=== PATIENT | female | born 1940 | race Caucasian/White ===

== ENCOUNTER → 2020-01-22 14:36 | Outpatient (CLI) | payer MEDICARE, SELFPAY ==
--- NOTE | ~2020-01-22 | DEXA_ITS ---
Bone Density Report Name: Dianne Perez Age: 79 Sex: Female Ethnicity: White Date of : 1940 Indication: postmenopausal; screening for osteoporosis; height loss; inflammatory bowel disease; hysterectomy; Referring Provider: Alton, Donaldo Melchor Study: Bone densitometry was performed. Exam Date: January 22, 2020 Accession number: [id number] Bone Density: Region BMD T-score Z-score Classification AP Spine (L1, L2, L4) 1.150 1.1 3.6 Normal Femoral Neck (Left) 0.877 0.3 2.4 Normal Total Hip (Left) 1.039 0.8 2.7 Normal World Health Organization criteria for BMD impression classify patients as: Normal (T-score at or above -1.0), Osteopenia (T-score between -1.0 and -2.5), or Osteoporosis (T-score at or below -2.5). 10-year Fracture Risk: FRAX not reported because: All T-scores for Spine Total, Hip Total, Femoral Neck at or above -1.0 Clinical Information Provided by Patient: Has used the following medications: Vitamin D Has the following medical conditions: Inflammatory bowel diseases, Hysterectomy, STAGE 3 KIDNEY DISEASE Patient maximum height was 62.5 Menopause Age: 51 No regular weight bearing exercise Drinks caffeinated beverages Onset of menses at age 13 Number of children 5 Impression: The patient has normal bone mass. Discussion: LOW RISK OF FRACTURE; BONE DENSITY IS WELL ABOVE THE MINIMUM DESIRABLE LEVEL AND ABOVE AVERAGE FOR AGE AND SEX AT ALL SKELETAL SITES TESTED. This person's bone density is above expected limits for age and sex. This is rarely clinically significant, but should be pursued if there are significant musculoskeletal complaints. The patient should follow a healthful lifestyle (good nutrition with adequate calcium and vitamin D, and appropriate weight-bearing exercise). Follow-Up: Consider repeating this study in 5 years or sooner if there is some new clinical indication. Reported by: [facility] on 01/22/2020 3:20:00 PM. Reviewed, dictated and finalized at location ACailin DIEHL
== END ==
PROVIDERS: PCP Nurse Practitioner Family; Visit Provider Internal Medicine Nephrology
DX: I12.9 Hypertensive chronic kidney disease with stage 1 through stage 4 chronic kidney disease, or unspecified chronic kidney disease (principal); N18.3 Chronic kidney disease, stage 3 (moderate); R32 Unspecified urinary incontinence; E11.9 Type 2 diabetes mellitus without complications; E78.5 Hyperlipidemia, unspecified; Z78.0 Asymptomatic menopausal state
CPT/HCPCS: 77080

== ENCOUNTER 2020-04-12 09:41 | Outpatient (CLI) | payer MEDICARE, SELFPAY ==
--- NOTE | ~2020-04-12 | US_ITS ---
EXAMINATION: US thyroid EXAM DATE: 04/12/2020 10:18 INDICATION: Nontoxic goiter. TECHNIQUE: Multiple grayscale and Doppler images of the thyroid were obtained (by a technologist who performed the scan) and subsequently reviewed. Individual nodules and recommendations may be reporte d in accordance with TI-RADS system as designated by the 2017 ACR White Paper TI-RADS committee. The re is no prior study for comparison. FINDINGS: The right thyroid lobe measures 4.4 x 2.2 x 1.6 cm, the left measuring 4.7 x 1.9 x 1.6 cm. Relatively homogeneous echogenicity except for multiple small thyroid nodules, mostly cystic or predominantly c ystic up to 1 cm in size. These are most likely benign. IMPRESSION: Mild thyromegaly. Multiple nodules likely benign but consider 1-2 year follow-up ultrasou nd. Reviewed, dictated and finalized at location A. IMPRESSION: Mild thyromegaly. Multiple nodules likely benign but consider 1-2 y ear follow-up ultrasound.
== END 2020-04-12 09:42 | disposition home or self-care (01) ==
PROVIDERS: PCP Nurse Practitioner Family; Visit Provider Internal Medicine Endocrinology, Diabetes & Metabolism
DX: E04.2 Nontoxic multinodular goiter (principal)
CPT/HCPCS: 76536

== ENCOUNTER → 2020-10-22 15:57 | Outpatient (CLI) | payer MEDICARE, SELFPAY ==
--- NOTE | ~2020-10-22 | XR_ITS ---
EXAMINATION: [id number] INDICATION: Right pleurodynia TECHNIQUE: A frontal view of the chest and 3 views of the right ribs were obtained on five radiograph s. COMPARISON: None. FINDINGS: The lungs are free of acute opacities. There is no pleural effusion or pneumothorax. The he art size is normal. There is a moderate-sized hiatal hernia. No displaced rib fracture is identified. 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 IMPRESSION: 1. No acute cardiopulmonary abnormality or evidence of displaced rib fracture. Reviewed, dictated and finalized at location A. RS INSPECTOR
== END ==
PROVIDERS: Visit Provider Nurse Practitioner Family
DX: R07.81 Pleurodynia (principal); K44.9 Diaphragmatic hernia without obstruction or gangrene; M19.011 Primary osteoarthritis, right shoulder
CPT/HCPCS: 71101

== ENCOUNTER 2022-01-18 09:30 | Outpatient (RCR) | payer MEDICARE, SELFPAY ==
--- NOTE | 2021-12-19 11:42 | PTOPEVAL ---
PHYSICAL THERAPY EVALUATION AND PLAN OF CARE Thank you for referring Dianne Perez to [facility].? The patient is scheduled to be seen for therapy? 1-2x/month. Please review, sign, date and return this plan of care DIVINE. I agree with and certify that the following plan of care is medically necessary. Referring Physician Date Attending Provider: Omar Oliveros, SIFTING OPERATOR Evaluation Diagnosis urinary incontinence Onset >5 years ago Subjective Information States that she has had the Query Text:As Reported By Patient/ incontinence for a long time Family and seems to be slightly worse . She did participate in pelvic floor therapy 5-10 years ago and felt it was productive but does not remember the exercises now. She started to do the ball squeeze (adduction sets) and seems to be helping a little already. Reports that she went to see a urologist and he prescribed two medications - she stopped taking one because it was making the incontinence worse. The other she continues to take but does not feel like it is doing much. She had a hysterectomy at ag 51 and does not feel like this is when her incontinence started. States that she feels like she does have stress and urge incontinence and also feels as though she has a difficult time emptying the bladder. She will stand up from the toilet and still feel like she has to go but nothing is coming out. Wears depends at night and does have incontinence when she is sleeping. Goes through 1-2 pads during the da but does not change her pad everytime she leaks just a little bit. States she can go to the bathroom anywhere from 1-2x/night or even up to 6-8x/ night. Prior Level of Function Medications Ho
--- NOTE | 2022-01-18 11:28 | PTOPEVAL ---
PHYSICAL THERAPY PROGRESS REPORT Thank you for referring Dianne Perez to [facility].? Dianne will follow up in a month for further evaluation and assessment. Please review, sign, date and return this plan of care DIVINE. I agree with and certify that the following plan of care is medically necessary. Referring Physician Date Attending Provider: Omar Oliveros, CW OPERATOR Diagnosis urinary incontinence Onset >5 years ago Subjective Information Dianne is here today 4 weeks Query Text:As Reported By Patient/ after initial visit for Family evaluation urinary incontinence. She reports that after two weeks of therapy she felt like she was making a lot of improvement but from then until now she feels like she plateued. Still feeling like she needs to be drinking more water. urine flow is stronger but still does not feel like there is a lot of fluid that voids when she urinates. Still feeling like she will empty the bladder and then stand and still feel like she has to go. Nocturia about 2-3x/night (vs 6-8x/night). Does not know how many times she goes during the day. States she goes through about 1-2pads/day and thinks she was previously going through 3-4pads/day. Pain Assessment Timing of Pain Assessment Timing of Pain Assessment Assessment Self Report Self Report Pain Level 0 Pain Score Pain Score 0: Self Report Lower Extremity Muscle Strength Testing General Lower Extremity Strength Gross Lower Extremity Strength hip flexion: 3/5 hip extension: 3/5 hip abduction: 3/5 knee flexion/extension: 4/5 -valsalva maneuver noted when moving from sit to stand and when getting up from supine position Pelvic Health Therapy Pelvic Health Exercise Isolated Levator Ani Contraction palpated through clothing; Query Text:Position, Hold/Relaxation able to perform 6contractions Time, Repetitions for 6-7seconds Other Exercises -sitting hamstring stretch Query Text:Record Sets, Repetitions, [id number] each side Resistance and Posit
--- NOTE | 2022-02-15 11:41 | PCPTNOTE ---
Patient called & cancelled scheduled appointment this date. Not able to make it.
--- NOTE | 2022-02-21 09:35 | PCPTNOTE ---
PHYSICAL THERAPY DISCHARGE NOTE Attending Provider: Omar Oliveros, ESTABLISHMENT GUIDE Patient:Dianne Perez Date of :1940 Dianne was participate in physical therapy to address stress and urge incontinence. She participated well in her attended appointments and was seeing improvement in her condition with decreased leakage and urgency. She was meant to arrive to a final appointment on 02/15/22, but she cancelled this appointment and did not reschedule. She will be discharged at this time. Patient?s initial visit was on 12/19/2021. The goals have been partially met. Thank you for referring this patient to [facility]. Please review, sign, date and return this discharge summary DIVINE. I have been updated about the patient's current status and I agree with discharge from the above service at this time. Referring Physician Date
== END 2022-02-22 11:01 | disposition home or self-care (01) ==
LOC: ANHPT 09:30
PROVIDERS: PCP Nurse Practitioner Family; Visit Provider Nurse Practitioner Family
DX: R32 Unspecified urinary incontinence (principal)
CPT/HCPCS: 97110; 97112; 97163; 97530

== ENCOUNTER 2022-06-16 18:20 | Emergency (ER) | payer MEDICARE, SELFPAY ==
--- NOTE | ~2022-06-16 | CT_ITS ---
EXAMINATION: CT brain wo con DATE: 06/16/2022 18:33 INDICATION: Right lower extremity weakness TECHNIQUE: Computed tomography (CT) of the head was performed without intravenous contrast. Sagittal and coronal reconstructions were performed. The mA was adjusted according to patient size. Iterative reconstruction technique was employed. The dose-length product was 605.33 mGy-cm. COMPARISON: None FINDINGS: No acute intracranial hemorrhage, acute infarction or abnormal extra axial fluid collection. There is moderate scattered white matter hypoattenuation consistent with chronic small vessel ischemic diseas e. Prominent perivascular spaces at the inferior aspect of the bilateral basal ganglia. Symmetric pro minence of the sulci and ventricles consistent with mild age-appropriate diffuse cerebral volume loss . No mass/mass effect. Changes of bilateral intraocular lens replacement. The orbits, paranasal sinus es and mastoid air cells are normal. Intracranial calcified cerebral atherosclerosis is noted. IMPRESSION: 1. No acute intracranial process. 2. Age-related changes including mild diffuse volume loss and moderate scattered white matter hypoatt enuation consistent with chronic small vessel ischemic disease. Reviewed, dictated and finalized at location A. IMPRESSION: 1. No acute intracranial process. 2. Age-related changes including mild diffuse volume loss and moderate scattere d white matter hypoattenuation consistent with chronic small vessel ischemic di sease.
--- NOTE | ~2022-06-16 | CT_ITS ---
EXAMINATION: CTA BRAIN/CAROTID DATE: 06/16/2022 19:15 INDICATION: Stroke TECHNIQUE: Computed tomographic angiography (CTA) of the head and neck was performed with 100 mL Omni paque-350 intravenous contrast. Multiplanar reconstructions and maximum intensity projection 3D-recon structions of the carotid arteries and of the intracranial arteries were created by the technologist on a separate workstation. Automated exposure control and iterative reconstruction technique were emp loyed.The dose-length product was 1174.83 mGy-cm. COMPARISON: Head CT dated FINDINGS: Carotid arteries: Small amount of nonhemodynamically significant atherosclerotic plaque along the normal caliber aortic arch. Small amount of atherosclerotic plaque with 0% stenosis of the right and left carotid bulbs re lative to normal distal artery lumen diameter (NASCET criteria). Right vertebral artery is mildly dom inant with tortuosity at the origin of the slightly smaller left vertebral artery. Atherosclerotic co ronary artery calcific a cyst. Increased fat in the posterior mediastinum likely related to the large hiatal hernia seen on prior chest radiograph. Wall thickening throughout the thoracic esophagus whic h may be related to reflux esophagitis. Likely benign thyroid nodules. Multinodular goiter with a few likely benign bilateral thyroid nodules. Visualized portions of the mid to upper lungs are clear. Th ere are bridging osteophytes at multiple levels in visualized upper thoracic spine, consistent with d iffuse idiopathic skeletal hyperostosis (DISH). Intracranial arteries Atherosclerotic calcifications without hemodynamically significant stenosis at the bilateral carotid siphons. The right vertebral artery is dominant. There is atherosclerotic disease along the right lico tebral and basilar arteries with multifocal mild to 50% stenosis along the right vertebral artery and with moderate 50-70% stenosis along the basilar artery. Bilateral A1 and P1 segments are patent. The right P1 segment is diminutive with the majority of flow to the right posterior cerebral artery supp lied via a patent right posterior communicating artery. There is severe stenosis, potentially occlusi on of the left P1 segment approximately 1.4 cm from its origin. Cerebral arterial arborization howeve r appear to remain symmetric including the more peripheral left posterior cerebral artery vascular di stribution suggesting be supplied via collaterals. No evidence stenosis along the bilateral anterior cerebral arteries. Multifocal mild stenosis along the bilateral middle cerebral arteries and a few of their central branches. IMPRESSION: 1. Small amount of atherosclerotic plaque with 0% stenosis of the left and right carotid bulbs relati ve to normal distal artery lumen diameter (NASCET criteria). 2. Extensive atherosclerotic disease along the intracranial cerebral arteries as detailed above inclu ding moderate stenosis along the basilar artery and severe stenosis if not occlusion along the left p osterior cerebral artery but with likely resupply via collaterals with retained relatively symmetric more peripheral cerebral arborization in the left posterior cerebral artery vascular distribution. 3. Wall thickening along the thoracic esophagus likely related to reflux esophagitis given the presen ce of a large hiatal hernia seen on prior chest radiograph. Reviewed, dictated and finalized at location A. IMPRESSION: 1. Small amount of atherosclerotic plaque with 0% stenosis of the left and righ t carotid bulbs relative to normal distal artery lumen diameter (NASCET criteri a). 2. Extensive atherosclerotic disease along the intracranial cerebral arteries a s detailed above including moderate stenosis along the basilar artery and sever e steno
--- NOTE | ~2022-06-16 | XR_ITS ---
EXAMINATION: XR chest 1V portable DATE: 06/16/2022 18:47 INDICATION: Suspected stroke TECHNIQUE: frontal view of the chest was obtained. COMPARISON: Chest radiograph dated 07/06/2008 FINDINGS: Mildly decreased lung volumes. No focal airspace opacities, pulmonary edema, pleural effusion or pneu mothorax. Mild cardiomegaly. Increase in size of a now large hiatal hernia. IMPRESSION: 1. Small lung volumes. No other acute cardiopulmonary disease. 2. Mild cardiomegaly. 3. Large hiatal hernia. Reviewed, dictated and finalized at location A.
--- NOTE | 2022-06-16 18:26 | ECG_ITS ---
Measurements Intervals [place] Rate: 78 P: 11 OR: 157 QRS: -16 QRSD: 87 T: -2 QT: 360 QTc: 412 Interpretive Statements SINUS RHYTHM LOW QRS VOLTAGE IN PRECORDIAL LEADS [QRS DEFLECTION < 1.0 mV IN CHEST LEADS] POOR R-WAVE PROGRESSION COMPARED TO ECG 08/13/2019 13:49:41 NO SIGNIFICANT CHANGES Electronically Signed On 06-17-2022 7:16:02 CDT by Manuel Ruelas M.D.
[2022-06-16 18:37] VITALS: BP 131/61; PULSE 80; RESP 18; TEMP 36.6; O2SAT 98
[2022-06-16 18:40] LABS: Basophils Absolute Auto 0.1 K/mm3 (0.0-0.1); Basophils Percent Auto 0.5 % (0.2-1.2); Eosinophils Absolute Auto 0.2 K/mm3 (0-0.3); Eosinophils Percent Auto 1.6 % (0-4.4); Hematocrit 31.1 % (37.0-47.0); Hemoglobin 9.2 g/dL (12.0-15.0); Immature Granulocyte Absolute 0.04 K/mm3 (0.00-0.031); Immature Granulocyte Percent A 0.4 % (0-0.5); Lymphocytes Absolute Auto 1.45 K/mm3 (0.9-3.2); Lymphocytes Percent Auto 15.2 % (18.3-44.2); Mean Corpuscular HGB Conc 29.6 g/dl (32-36); Mean Corpuscular Hemoglobin 25.9 pg (26-34); Mean Corpuscular Volume 87.6 fl (80-100); Mean Platelet Volume 9.7 fl (7.4-10.4); Monocytes Absolute Auto 0.8 K/mm3 (0.1-0.6); Monocytes Percent Auto 7.9 % (2.6-8.5); Neutrophils Absolute Auto 7.1 K/mm3 (1.3-6.7); Neutrophils Percent Auto 74.4 % (45.5-73.1); Platelet Count Result 276 k/mm3 (150-375); Red Blood Count 3.55 M/mm3 (4.2-5.4); Red Cell Distribution Width 15.6 % (11.5-14.5); White Blood Count 9.6 K/mm3 (4.5-10.0)
--- NOTE | 2022-06-16 18:42 | ED.NEUROSD ---
HPI - Neuro Symptoms/Deficit General Chief Complaint: Suspected CVA Stated Complaint: can't move right leg History of Present Illness HPI Narrative: 81-year-old female with a past medical history of DM2, hypertension, dyslipidemia, gout presents to our department today cute onset right lower extremity weakness over the past 2 hours. EMS reports that patient has had some vague symptoms over the past 24 hours and lost all use of right lower extremity over the past 2 hours. While in route to our facility medics state that the patient went into a days and stopped responding for a period of 5 to 10 minutes. Upon my evaluation of patient she is mentating appropriately showing no mental status changes, dysarthria, inattention. Code stroke called upon arrival and patient was taken to the CT scanner. Related Data Home Medications Medication Instructions Recorded Confirmed cholecalciferol (vitamin D3) 50 2,000 unit PO DAILY 12/30/19 03/09/20 mcg (2,000 unit) capsule cinnamon bark 500 mg capsule 500 mg PO DAILY 12/30/19 03/09/20 (Cinnamon) glucosam 750 mg-chondroi 100 tablet PO 12/30/19 03/09/20 mg-hyalur 1.65 mg-CF borate 108 mg tablet ([employer]) multivitamin with iron (Daily 1 tablet PO DAILY 12/30/19 03/09/20 Vites/Iron tablet) vitamin E 1,000 unit/112 gram unit topical 12/30/19 03/09/20 topical cream (GRx Vitamin E) exenatide microspheres 2 mg/0.85 2 mg subcut WEEKLY 02/07/22 mL subcutaneous auto-injector (Telisma) tumeric 100 mg-mary anne 150 mg-olive cap PO 02/07/22 50 mg-oreg 150 mg-caprylate capsule Allergies Allergy/AdvReac Type Severity Reaction Status Date / Time No Known Allergies Allergy Verified 02/07/22 11:17 Review of Systems Review of Systems: CONSTITUTIONAL: Denies fever, chills, or sweats. EYES: Denies visual changes, redness, or discharge. ENT: Denies rhinorrhea, congestion, sore throat, or otalgia. CARDIOVASCULAR: Denies chest pain, palpitations, or edema. RESPIRATORY: Denies cough or dyspnea. GASTROINTESTINAL: Denies abdominal pain, nausea, vomiting, or diarrhea. GENITOURINARY: Denies dysuria or hematuria. SKIN: Denies rash or itching. MUSCULOSKELETAL: Denies back pain, joint pain, or myalgia. NEUROLOGIC: Denies headache, numbness, or weakness. PSYCHIATRIC: Denies anxiety or depression. COUNTS INCLUDE 234 BEDS AT THE [facility] Past Medical History Medical History (Updated 06/27/22 @ 14:45 by Adelfo Corona MD) Arthritis Bowel trouble Bullous pemphigoid Diabetes A1c 5.8 on 02-16-20 Gout High cholesterol Hypertension Lichen planopilaris Skin problem Surgical History Surgical History H/O basal cell carcinoma excision excision on right eyebrow 03/2013 H/O tubal ligation History of cataract surgery right 09/24/2013, Left 10/27/2013 History of hysterectomy History of left knee replacement 03/16/2008 History of right hip replacement 07/14/2008 History of right knee joint replacement 11/16/2007 Family History Family History Father Diabetes mellitus Mother Alzheimer disease Other Colitis Hypertension Social History Social History Smoking status: Never smoker Alcohol intake: never Gender identity (if verbalized by the patient): Female Exam Narrative: GENERAL: Well-appearing, well-nourished, and in no acute distress. HEAD: Normocephalic, atraumatic. EYES: PERRLA and EOMI. ENT: Nares clear, no rhinorrhea or epistaxis. Mucous membranes moist. NECK: Supple. CHEST: Clear to auscultation. No respiratory distress. HEART: Regular rate and rhythm. No murmur heard. Normal peripheral pulses. ABDOMEN: Soft, nontender, nondistended, normal active bowel sounds. EXTREMITIES: Normal range of motion. No edema. SKIN: Warm, dry, no rash. NEURO: Right lower extremity strength is 0 out of 5, right upper extre
[2022-06-16 18:49] LABS: Alanine Aminotransferase 17 U/L (6-35); Albumin Level 3.5 g/dL (3.5-5.1); Alkaline Phosphatase 94 U/L (38-126); Anion Gap 8 mmol/L (8-16); Aspartate Amino Transferase 23 U/L (14-36); Bilirubin,Total 0.2 mg/dL (0.2-1.3); Blood Urea Nitrogen 23 mg/dL (7-17); Calcium 9.1 mg/dL (8.4-10.2); Carbon Dioxide 28 mmol/L (22-30); Chloride 99 mmol/L (98-107); Estimated CRCL calculation 33 ml/min; Estimated Glomerular Filt Rate 40; Glucose 165 mg/dL (65-110); Potassium 3.6 mmol/L (3.4-5.0); Sodium 135 mmol/L (137-145)
[2022-06-16 18:50] VITALS: BP 135/67; PULSE 79; RESP 27; O2SAT 98
[2022-06-16 18:50] LABS: INR 1.1; Prothrombin Time 13.5 Seconds (11.1-14.7)
[2022-06-16 18:51] LABS: Partial Thromboplastin Time 27.8 SECONDS (22.3-36.8)
[2022-06-16 18:54] LABS: Hypochromasia 1+ (NORMAL); Ovalocytes 1+ (NORMAL); Platelet Estimate Adequate (Adequate)
[2022-06-16 19:01] VITALS: BP 138/69; PULSE 80; RESP 18; O2SAT 99
[2022-06-16 19:01] LABS: Troponin I < 0.012 ng/mL (0.000-0.034)
[2022-06-16 19:29] VITALS: BP 145/66; PULSE 92; RESP 23; O2SAT 98
[2022-06-16 19:46] VITALS: BP 144/63; PULSE 93; RESP 29; O2SAT 100
[2022-06-16 20:05] VITALS: BP 111/62; PULSE 110; RESP 16; O2SAT 97
== END 2022-06-16 20:07 | disposition short-term general hospital (02) ==
PROVIDERS: Emergency Provider Emergency Medicine; PCP Nurse Practitioner Family
DX: R41.82 Altered mental status, unspecified (principal); E78.5 Hyperlipidemia, unspecified; I10 Essential (primary) hypertension; E11.9 Type 2 diabetes mellitus without complications; M19.90 Unspecified osteoarthritis, unspecified site; M10.9 Gout, unspecified; Z85.828 Personal history of other malignant neoplasm of skin; Z98.42 Cataract extraction status, left eye; Z98.41 Cataract extraction status, right eye; Z90.710 Acquired absence of both cervix and uterus; Z96.653 Presence of artificial knee joint, bilateral; Z96.641 Presence of right artificial hip joint; Z79.82 Long term (current) use of aspirin; R94.31 Abnormal electrocardiogram [ECG] [EKG]
CPT/HCPCS: 36415; 37195; 70450; 70496; 70498; 71045; 80053; 84484; 85025; 85610; 85730; 93005; 99285; J2997; Q9967

== ENCOUNTER → 2022-09-08 16:29 | Outpatient (CLI) | payer MEDICARE, SELFPAY ==
--- NOTE | ~2022-09-08 | XR_ITS ---
XR chest 2V 09/08/2022 16:50 Indication: Cough Procedure: 2 view chest Comparison: Comparison to multiple prior studies sequentially, with oldest reviewed study dated 07/04. Findings: Heart size normal. There is a large hiatal hernia. No focal air space disease, pulmonary ed kristen, pleural effusion or suspected pneumothorax. Moderate thoracic spondylosis with accentuated kypho sis. Impression: 1: No acute cardiopulmonary disease. 2: Large hiatal hernia. Reviewed, dictated and finalized at location B. Impression: 1: No acute cardiopulmonary disease. 2: Large hiatal hernia.
== END ==
PROVIDERS: PCP Nurse Practitioner Family; Visit Provider Nurse Practitioner Family
DX: R05.9 Cough, unspecified (principal); K44.9 Diaphragmatic hernia without obstruction or gangrene
CPT/HCPCS: 71046

== ENCOUNTER 2023-03-20 09:21 | Outpatient (CLI) | payer MEDICARE, SELFPAY ==
[2023-03-20 14:03] LABS: Basophils Absolute Auto 0.1 K/mm3 (0.0-0.1); Basophils Percent Auto 0.7 % (0.2-1.2); Eosinophils Absolute Auto 0.3 K/mm3 (0-0.3); Eosinophils Percent Auto 3.1 % (0-4.4); Hematocrit 38.8 % (37.0-47.0); Immature Granulocyte Absolute 0.04 K/mm3 (0.00-0.031); Immature Granulocyte Percent A 0.4 % (0-0.5); Lymphocytes Absolute Auto 1.59 K/mm3 (0.9-3.2); Lymphocytes Percent Auto 17.5 % (18.3-44.2); Mean Corpuscular HGB Conc 30.9 g/dl (32-36); Mean Corpuscular Hemoglobin 28.6 pg (26-34); Mean Corpuscular Volume 92.6 fl (80-100); Mean Platelet Volume 11.6 fl (7.4-10.4); Monocytes Absolute Auto 0.8 K/mm3 (0.1-0.6); Neutrophils Absolute Auto 6.3 K/mm3 (1.3-6.7); Neutrophils Percent Auto 69.3 % (45.5-73.1); Platelet Count Result 204 k/mm3 (150-375); Red Blood Count 4.19 M/mm3 (4.2-5.4); Red Cell Distribution Width 13.2 % (11.5-14.5); White Blood Count 9.1 K/mm3 (4.5-10.0)
[2023-03-20 14:10] LABS: Alanine Aminotransferase 21 U/L (6-35); Albumin Level 4.4 g/dL (3.5-5.1); Alkaline Phosphatase 95 U/L (38-126); Anion Gap 3 mmol/L (8-16); Aspartate Amino Transferase 37 U/L (14-36); Bilirubin,Total 0.6 mg/dL (0.2-1.3); Blood Urea Nitrogen 19 mg/dL (7-17); Calcium 9.1 mg/dL (8.4-10.2); Carbon Dioxide 38 mmol/L (22-30); Chloride 100 mmol/L (98-107); Cholesterol 151 mg/dL (0-200); Estimated Glomerular Filt Rate 48; Glucose 98 mg/dL (65-110); HDL Direct 54 mg/dL; Potassium 3.1 mmol/L (3.4-5.0); Sodium 141 mmol/L (137-145); Triglycerides 137 mg/dL (<150)
[2023-03-20 14:13] LABS: Iron 115 ug/dL (37-170)
[2023-03-20 14:21] LABS: LDL Cholesterol Direct 69 mg/dL
[2023-03-20 14:34] LABS: Percent Iron Saturation 38 % (20-50)
[2023-03-20 14:42] LABS: MALB Creatinine Ratio 101.2 mg/g (0-30); Microalbumin Urine Random 59.7 mg/L (0-16.7)
[2023-03-20 14:43] LABS: Hemoglobin A1C 5.9 % (<5.7)
[2023-03-20 15:15] LABS: Folic Acid 11.3 ng/mL (2.76->20)
[2023-03-21 10:23] LABS: Vitamin D 25 Hydroxy 55.9 ng/mL
== END 2023-03-20 09:22 | disposition home or self-care (01) ==
LOC: ANHGOSHLAB 09:23
PROVIDERS: PCP Nurse Practitioner Family; Visit Provider Family Medicine
DX: Z00.00 Encounter for general adult medical examination without abnormal findings (principal); E11.9 Type 2 diabetes mellitus without complications; I10 Essential (primary) hypertension; E78.5 Hyperlipidemia, unspecified; E55.9 Vitamin D deficiency, unspecified; D64.9 Anemia, unspecified
CPT/HCPCS: 36415; 80053; 80061; 82043; 82306; 82607; 82728; 82746; 83036; 83540; 83550; 84443; 85025

== ENCOUNTER → 2023-03-20 09:49 | Outpatient (CLI) | payer MEDICARE, SELFPAY ==
--- NOTE | ~2023-03-20 | US_ITS ---
Thyroid ultrasound. Clinical History: Iron deficiency goiter COMPARISON: 04/12/2020 Findings: Real-time sonography of the thyroid gland was performed. The right lobe measures 4.4 x 2.2 x 1.5 cm. The left lobe measures 4.9 x 2.1 x 1.4 cm. The isthmus is 7 mm in AP diameter. There are cystic nodules bilaterally, largest measuring 1.1 cm in diameter and the left thyroid lobe. Impression: Cystic bilateral thyroid nodules, with benign appearance. Reviewed, dictated and finalized at location M. Impression: Cystic bilateral thyroid nodules, with benign appearance.
== END ==
PROVIDERS: PCP Family Medicine; Visit Provider Family Medicine
DX: E01.0 Iodine-deficiency related diffuse (endemic) goiter (principal)
CPT/HCPCS: 76536

== ENCOUNTER → 2023-05-02 11:28 | Outpatient (CLI) | payer MEDICARE, SELFPAY ==
--- NOTE | ~2023-05-02 | MM_ITS ---
EXAMINATION: MM screening elizabeth BI w marina HISTORY: Screening mammogram TECHNIQUE: Craniocaudal and mediolateral oblique 3-D tomosynthesis images were obtained and synthetic 2-D images were generated. CAD analysis was submitted and interpreted. COMPARISON: 04/07/2008 diagnostic left mammogram 03/02/2008 bilateral screening mammogram BREAST PARENCHYMAL COMPOSITION: There are scattered areas of fibroglandular density. FINDINGS: A cluster grouped microcalcifications is noted in the mid upper there are inner aspect of t he left breast, on the innermost MLO Tomosynthesis image, suggesting this may be skin lesion calcific ations. Similar calcifications are noted on March 02, 2008 MLO view, suggesting these are chronic and benign. There is no evidence of suspicious mass, calcification, or architectural distortion to sugge st malignancy in either breast. There has been no suspicious interval change. IMPRESSION: 1. No mammographic evidence of malignancy. 2. Recommend routine screening mammography in one year. BI-RADS Category 2: Benign finding(s). Reviewed, dictated and finalized at location A.
== END ==
PROVIDERS: PCP Family Medicine; Visit Provider Family Medicine
DX: Z12.31 Encounter for screening mammogram for malignant neoplasm of breast (principal)
CPT/HCPCS: 77063; 77067

== ENCOUNTER 2023-06-25 15:00 | Outpatient (CLI) | payer MEDICARE, SELFPAY ==
[2023-06-25 19:51] LABS: Alanine Aminotransferase 24 U/L (6-35); Albumin Level 4.4 g/dL (3.5-5.1); Alkaline Phosphatase 91 U/L (38-126); Anion Gap 6 mmol/L (8-16); Aspartate Amino Transferase 33 U/L (14-36); Bilirubin,Total 0.3 mg/dL (0.2-1.3); Blood Urea Nitrogen 20 mg/dL (7-17); Calcium 9.2 mg/dL (8.4-10.2); Carbon Dioxide 36 mmol/L (22-30); Chloride 101 mmol/L (98-107); Estimated Glomerular Filt Rate 43; Glucose 110 mg/dL (65-110); Potassium 3.1 mmol/L (3.4-5.0); Sodium 143 mmol/L (137-145)
== END 2023-06-25 15:01 | disposition home or self-care (01) ==
PROVIDERS: PCP Family Medicine; Visit Provider Family Medicine
DX: E87.6 Hypokalemia (principal); I12.9 Hypertensive chronic kidney disease with stage 1 through stage 4 chronic kidney disease, or unspecified chronic kidney disease; N18.30 Chronic kidney disease, stage 3 unspecified
CPT/HCPCS: 36415; 80053

== ENCOUNTER 2023-07-30 15:41 | Outpatient (CLI) | payer MEDICARE, SELFPAY ==
[2023-07-30 20:26] LABS: Anion Gap 8 mmol/L (8-16); Blood Urea Nitrogen 32 mg/dL (7-17); Calcium 9.2 mg/dL (8.4-10.2); Carbon Dioxide 33 mmol/L (22-30); Chloride 102 mmol/L (98-107); Estimated Glomerular Filt Rate 36; Glucose 105 mg/dL (65-110); Magnesium 1.9 mg/dL (1.6-2.3); Potassium 3.6 mmol/L (3.4-5.0); Sodium 143 mmol/L (137-145)
== END 2023-07-30 15:42 | disposition home or self-care (01) ==
LOC: ANHGOSHLAB 15:42
PROVIDERS: PCP Family Medicine; Visit Provider Internal Medicine Cardiovascular Disease
DX: I10 Essential (primary) hypertension (principal)
CPT/HCPCS: 36415; 80048; 83735

== ENCOUNTER 2023-08-13 17:31 | Observation (INO) | payer MEDICARE, SELFPAY ==
--- NOTE | ~2023-08-13 | CT_ITS ---
CT head without contrast Indication: Syncope COMPARISON: 06/16/2022 Technique: Serial scans were obtained through the brain without the administration of contrast. Dose reduction technique was used on this scan by utilizing automated exposure control and iterative recon struction technique. The dose-length product (DLP) was 681.00 mGy-cm. Findings: There is no evidence of intracranial hemorrhage, mass lesion, or acute infarct. The ventri cles and subarachnoid spaces are dilated, consistent with mild atrophy. Low attenuation regions are seen within the periventricular white matter bilaterally, likely representing changes from chronic mi crovascular ischemic disease. There is no evidence of edema, mass effect or midline shift. The visu alized paranasal sinuses and mastoid air cells are clear. Impression: No intracranial hemorrhage, mass, or acute infarct. Atrophy and chronic white matter changes, as above. Reviewed, dictated and finalized at location . Impression: No intracranial hemorrhage, mass, or acute infarct. Atrophy and chronic white matter changes, as above.
--- NOTE | ~2023-08-13 | CT_ITS ---
CT of the Abdomen and Pelvis: Indication: GI bleed Technique: 2.5 mm axial scans were obtained through the abdomen and pelvis following intravenous adm inistration of 100 cc of Omnipaque 350. Dose reduction technique was used on this scan by utilizing a utomated exposure control and iterative reconstruction technique. The dose-length product (DLP) was 9 43.27 mGy-cm. Findings: Scans through the lung bases demonstrate large hiatal hernia, containing a large portion o f the stomach. The liver, spleen, pancreas, adrenals and kidneys are within normal limits. There are small gallstone s versus small gallbladder wall polyps. There are atherosclerotic calcifications of the aorta. No ly mphadenopathy. No bowel obstruction or bowel wall thickening. Small focal area of hyperdensity noted in the gastric fundus region within the hiatal hernia (axial image 6). There is no evidence to suggest acute appendi citis. Duodenal diverticulum present. Images through the pelvis are degraded by streak artifact from right hip arthroplasty.. Urinary bladd er unremarkable. No adnexal mass seen. Patient is post hysterectomy. No ascites. There is 3.0 x 3.9 x 3.8 cm mass along the anterior margin of the right acetabulum/acetabular cup component, with predomi nantly peripheral right hyperdense material (axial image 136 for example). Impression: Small focal area of hyperdensity in the gastric fundus region with a large hiatal hernia. This could reflect congestion material versus focal echogenic bleeding. Correlate clinically. Consider endoscopy as indicated. 3.0 x 3.9 x 3.8 cm mass along the anterior margin of the right acetabulum/destructive component with peripheral hyperdense material, as above. 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 Malignancy felt to be less likely, though not definitively exclud ed. Tissue sampling can be considered as indicated. Small gallstones versus gallbladder wall polyps. Reviewed, dictated and finalized at location M. Impression: Small focal area of hyperdensity in the gastric fundus region with a large hiat al hernia. This could reflect congestion material versus focal echogenic bleedi ng. Correlate clinically. Consider endoscopy as indicated. 3.0 x 3.9 x 3.8 cm mass along the anterior margin of the right acetabulum/destr uctive component with peripheral hyperdense material, as above. 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 Malignancy felt to be less likely, though not definitively excluded. Tissue sa mpling can be considered as indicated. Small gallstones versus gallbladder wall polyps.
[2023-08-13 18:10] VITALS: BP 190/102; PULSE 83; RESP 20; TEMP 36.6; O2SAT 96
[2023-08-13 21:04] LABS: Basophils Absolute Auto 0.1 K/mm3 (0.0-0.1); Basophils Percent Auto 0.6 % (0.2-1.2); Eosinophils Absolute Auto 0.3 K/mm3 (0-0.3); Eosinophils Percent Auto 2.9 % (0-4.4); Hematocrit 41.4 % (37.0-47.0); Hemoglobin 12.7 g/dL (12.0-15.0); Immature Granulocyte Absolute 0.02 K/mm3 (0.00-0.031); Immature Granulocyte Percent A 0.2 % (0-0.5); Lymphocytes Absolute Auto 1.65 K/mm3 (0.9-3.2); Lymphocytes Percent Auto 19.2 % (18.3-44.2); Mean Corpuscular HGB Conc 30.7 g/dl (32-36); Mean Corpuscular Hemoglobin 29.1 pg (26-34); Mean Platelet Volume 11.5 fl (7.4-10.4); Monocytes Absolute Auto 0.6 K/mm3 (0.1-0.6); Monocytes Percent Auto 7.1 % (2.6-8.5); Platelet Count Result 186 k/mm3 (150-375); Red Blood Count 4.36 M/mm3 (4.2-5.4); Red Cell Distribution Width 13.3 % (11.5-14.5); White Blood Count 8.6 K/mm3 (4.5-10.0)
[2023-08-13 21:16] LABS: Partial Thromboplastin Time 25.3 SECONDS (22.3-36.8); Prothrombin Time 13.4 Seconds (11.1-14.7)
[2023-08-13 21:18] LABS: Alanine Aminotransferase 19 U/L (6-35); Albumin Level 4.5 g/dL (3.5-5.1); Alkaline Phosphatase 88 U/L (38-126); Anion Gap 8 mmol/L (8-16); Aspartate Amino Transferase 26 U/L (14-36); Bilirubin,Total 0.6 mg/dL (0.2-1.3); Blood Urea Nitrogen 21 mg/dL (7-17); Calcium 9.6 mg/dL (8.4-10.2); Carbon Dioxide 32 mmol/L (22-30); Chloride 99 mmol/L (98-107); Estimated CRCL calculation 31 ml/min; Estimated Glomerular Filt Rate 39; Glucose 96 mg/dL (65-110); Potassium 3.9 mmol/L (3.4-5.0); Sodium 139 mmol/L (137-145)
[2023-08-13 23:32] VITALS: BP 185/105; PULSE 71; RESP 18; TEMP 36.6; O2SAT 92
[2023-08-14] VITALS (16 sets, daily range): BP systolic 135–225; BP diastolic 50–100; PULSE 62–95; RESP 14–20; TEMP 36.4–36.7; O2SAT 91–98; BMI 34.7
[2023-08-14 00:51] LABS: Appearance Urine Cloudy (Clear); Bacteria Urine 4+ /hpf; Bilirubin Urine Negative (Negative); Blood Urine 3+ (Negative); Color Urine Yellow (Yellow); Glucose Urine UA Negative (Negative); Ketones Urine Negative (Negative); Leukocyte Esterase Ur 1+ LEU/UL (Negative); Nitrate Urine Negative (Negative); Non Pathogenic Casts 0-2; Protein Urine 2+ mg/dL (Negative); RBC Urine >100 /hpf (0-2); Specific Grav Ur 1.014 (1.001-1.035); Squamous Epithelial Cell Urine None seen /hpf (Few); Urobilinogen Urine 0.2 mg/dL (<2.0); WBC Urine 21-50 /hpf; pH Urine 7.5 (5.0-9.0)
[2023-08-14 01:12] LABS: Add Urine Microscopic? YES
[2023-08-14] MEDS: LOSARTAN POTASSIUM 100 MG TABLET PO ×2 (01:17→21:18)
--- NOTE | 2023-08-14 03:06 | ED.GENADULT ---
HPI - General Adult General Chief complaint: GI Bleed Stated complaint: rectaol bleeding Time Seen by Provider: 08/13/23 23:26 History of Present Illness HPI narrative: Patient presents to the emergency department from home with her family. She has had multiple episodes of bright blood bloody stools since yesterday. She has had 2 episodes here. Patient has lower abdominal discomfort but denies nausea and vomiting. She denies this having happened in the past. She is also hypertensive. She has not taken her evening losartan dose. She states that her wheel assembler recently took her off nifedipine and put her on spironolactone with concern for her. She does not take blood thinners Related Data Home Medications Medication Instructions Recorded Confirmed cholecalciferol (vitamin D3) 50 2,000 unit PO DAILY 12/30/19 07/12/23 mcg (2,000 unit) capsule glucosam 750 mg-chondroi 100 tablet PO 12/30/19 07/12/23 mg-hyalur 1.65 mg-CF borate 108 mg tablet ([facility] [employer]) multivitamin with iron (Daily 1 tablet PO DAILY 12/30/19 07/12/23 Vites/Iron tablet) vitamin E 1,000 unit/112 gram unit topical 12/30/19 07/12/23 topical cream ([facility] Vitamin E) exenatide microspheres 2 mg/0.85 2 mg subcut WEEKLY 02/07/22 07/12/23 mL subcutaneous auto-injector ([employer]) tumeric 100 mg-mary anne 150 mg-olive cap PO 02/07/22 07/12/23 50 mg-oreg 150 mg-caprylate capsule losartan 100 mg tablet 100 mg PO DAILY 02/14/23 07/12/23 atorvastatin 40 mg tablet 40 mg PO QHS 06/25/23 07/12/23 Allergies Allergy/AdvReac Type Severity Reaction Status Date / Time No Known Allergies Allergy Verified 08/13/23 18:12 Review of Systems Review of Systems: Review of systems negative except for what is documented in the [facility] Past Medical History Medical History Bullous pemphigoid Cerebral atherosclerosis CKD (chronic kidney disease) stage 3, GFR 30-59 ml/min Collagenous colitis Diabetes A1c 5.8 on 4-6-20 Gout History of stroke (~06/2022) Hypertension Lichen planopilaris Osteoarthritis Prediabetes Skin problem Stress reaction of pelvis Thyromegaly Urinary incontinence Vitamin D deficiency Surgical History Surgical History H/O basal cell carcinoma excision (~03/2013) excision on right eyebrow 03/2013 H/O tubal ligation (~07/1973) History of cataract surgery (~09/24/13) right 09/24/2013, Left 10/27/2013 History of hysterectomy (~06/1991) History of left knee replacement (~03/16/08) 03/16/2008 History of right hip replacement (~07/14/08) History of right knee joint replacement (~11/16/07) 11/16/2007 Family History Family History Father Diabetes mellitus Mother Alzheimer disease Other Colitis Hypertension Social History Social History Smoking status: Never smoker Alcohol intake: never Substance use: never Substance use type: does not use Lack of Transportation: No Lack of Food: Never True Current Housing: I Have Housing Concerned About Future Housing: No Difficulty Paying Gas/Electric Bills: No Difficulty Paying for Meds: No Currently Unemployed: No Education: High School Diploma/GED Difficulty w/ Childcare or Family Care: No Living arrangements: with family Occupation/Education: retired Gender identity (if verbalized by the patient): Female Spiritual care concerns: No Exam Narrative: GENERAL: Well-appearing, well-nourished, and in no acute distress. HEAD: Normocephalic, atraumatic. EYES: PERRLA and EOMI. ENT: Nares clear, no rhinorrhea or epistaxis. Mucous membranes moist. NECK: Supple. CHEST: Clear to auscultation. No respiratory distress. HEART: Regular rate and rhythm. ABDOMEN: Soft, nontender, nondistended. EXTREMITIES: Normal range of motion. No
[2023-08-14] MEDS: hydrALAZINE HCL 20 MG/ML VIAL 10 MG IV PUSH ×2 (03:20→04:47)
[2023-08-14] MEDS: ONDANSETRON INJ 4 MG/2 ML VIAL IV PUSH ×2 (05:19→23:45)
--- NOTE | 2023-08-14 06:18 | PC.NURSE ---
Patient's O2 dropped down to 87%. Patient put on O2 via nasal cannula at 2L/min and SPO2 was obtained at 97%. EDP Dr. Gavin aware.
--- NOTE | 2023-08-14 06:19 | PC.NURSE ---
Patient's blood pressure dropped to 87/46. Patient appeared pale and clammy. Patient's next blood pressure was 120/82. Patient states she felt lightheaded and cold. EDP Dr. Gavin aware.
[2023-08-14] MEDS: SODIUM CHLORIDE 0.9% IV 500 ML 999 ML IV CONT (06:41)
--- NOTE | 2023-08-14 09:09 | ADMGEN ---
This patient, Dianne Perez, was admitted to -. Patient/family oriented to hospital policies and general routines including ID bracelet, bed and alarms, visiting hours, pain management, procedures, bathroom and other care routines, personal items, smoking policy, room service/diet, and visiting hours. Information on how to activate the Rapid Response Team has been discussed. Patient/Family are encouraged to report perceived risks to care and to ask questions if they do not understand what they are told or what they should do.
[2023-08-14] MEDS: PANTOPRAZOLE SODIUM IV 40 MG VIAL IV PUSH ×2 (10:54→21:17)
--- NOTE | 2023-08-14 11:28 | PM.IMHP ---
H&P: HPI History of Present Illness Date/Time: 08/14/23 11:28 Chief Complaint: Bright blood per rectum Narrative: This is a 82-year-old female with a past medical history CTA taking low-dose aspirin, CKD stage 3, hypertension, diabetes, hyperlipidemia and collagenous colitis that presented to the ED on 08/14/2023 after noticing bright red blood filling her toilet bowl. She states that she did not think it was associated with a bowel movement and the blood covered the inside of the bowl and around the toilet bowl. She states that she has never had an occurrence like this before and denies history of hemorrhoids and diverticular disease. She is not sure when her last colonoscopy was but states it was more than 5 years ago. She also developed some nausea vomiting prior to presenting into the ED and states that she had 2-3 bouts of nonbloody non bilious emesis. She denies abdominal pain associated with her BRBPR. She is not on any anticoagulation medication although she does take a daily aspirin. Patient's daughter in the room at. According to the daughter the patient had been acting more strange and out of it . Upon presentation she was found to have a blood pressure of 225/95 and she was given medication to lower this which ended up dropping her systolic blood pressure in the 80s. Patient's white count within normal limits. H&H 12.7/41.4. She was found to have an elevated BUN and creatinine of 21/ 1.3 which appears to be near her baseline. UA suspicious for infection. GI consulted due to bright red blood per rectum. Patient admitted observation due to bleeding from her rectum and elevated blood pressures. [facility] Past Medical History Medical History Bullous pemphigoid Cerebral atherosclerosis CKD (chronic kidney disease) stage 3, GFR 30-59 ml/min Collagenous colitis Diabetes A1c 5.8 on 02-16-20 Gout History of stroke (~06/2022) Hypertension Lichen planopilaris Osteoarthritis Prediabetes Skin problem Stress reaction of pelvis Thyromegaly Urinary incontinence Vitamin D deficiency Surgical History Surgical History H/O basal cell carcinoma excision (~03/2013) excision on right eyebrow 03/2013 H/O tubal ligation (~07/1973) History of cataract surgery (~09/24/13) right 09/24/2013, Left 10/27/2013 History of hysterectomy (~06/1991) History of left knee replacement (~03/16/08) 03/16/2008 History of right hip replacement (~07/14/08) History of right knee joint replacement (~11/16/07) 11/16/2007 Family History Family History Father Diabetes mellitus Mother Alzheimer disease Other Colitis Hypertension Social History Social History Smoking status: Never smoker Alcohol intake: never Substance use: never Substance use type: does not use Lack of Transportation: No Lack of Food: Never True Current Housing: I Have Housing Concerned About Future Housing: No Difficulty Paying Gas/Electric Bills: No Difficulty Paying for Meds: No Currently Unemployed: No Education: Bachelor's Degree Difficulty w/ Childcare or Family Care: No Living arrangements: with family Occupation/Education: retired Gender identity (if verbalized by the patient): Female Spiritual care concerns: No Meds Home Medications and Allergies Home Medications Medication Instructions Recorded Confirmed Type cholecalciferol (vitamin D3) 50 2,000 unit PO DAILY 12/30/19 08/14/23 History mcg (2,000 unit) capsule glucosam 750 mg-chondroi 100 1 tablet PO DAILY 12/30/19 08/14/23 History mg-hyalur 1.65 mg-CF borate 108 mg tablet ([employer]) multivitamin with iron (Daily 1 tablet PO DAILY 12/30/19 08/14/23 History Vites/Iron tablet) exenatide microspheres 2 mg/0.85 2
--- NOTE | 2023-08-14 11:56 | ECG_ITS ---
Measurements Intervals [place] Rate: 85 P: -9 SD: 167 QRS: -22 QRSD: 92 T: 152 QT: 383 QTc: 456 Interpretive Statements SINUS RHYTHM WITH FREQUENT SUPRAVENTRICULAR PREMATURE COMPLEXES MODERATE VOLTAGE CRITERIA FOR LVH, CONSIDER NORMAL VARIANT [MEETS CRITERIA IN ONE OF: R(aVL), S(V1), R(V5), R(V5/V6)+S(V1)] MODERATE T-WAVE ABNORMALITY, CONSIDER LATERAL ISCHEMIA [-0.1+ mV T WAVE IN I/aVL/V5/V6] COMPARED TO ECG 06/16/2022 18:37:49 NO SIGNIFICANT CHANGES Electronically Signed On 08-14-2023 12:49:20 CDT by Fer Robbins M.D.
[2023-08-14 12:29] LABS: Hematocrit 39.2 % (37.0-47.0); Hemoglobin 12.2 g/dL (12.0-15.0)
--- NOTE | 2023-08-14 13:56 | WPDGICN ---
Assessment and Plan Assessment and plan (1) Acute GI bleeding: Code(s): K92.2 - Gastrointestinal hemorrhage, unspecified Status: Acute Assessment and Plan: As mentioned above, she began passing relatively bright red blood in liquid form with some clots late yesterday afternoon. It occurred again early this morning. She has had no pain with that has never had rectal bleeding in the past. (2) Collagenous colitis: Code(s): K52.831 - Collagenous colitis Status: Acute Assessment and Plan: This diagnosis was made on colonoscopy in 2014. She has been taking budesonide face only since then. She is no longer troubled by diarrhea as she had been prior to the diagnosis (3) Hypertension: Qualifiers: Hypertension type: unspecified Qualified Code(s): I10 - Essential (primary) hypertension Code(s): I10 - Essential (primary) hypertension Status: Acute Assessment and Plan: Blood pressure initially was quite high in the emergency room, 225/95. (4) History of stroke: Onset Date: ~06/2022 Code(s): Z86.73 - Personal history of transient ischemic attack (TIA), and cerebral infarction without residual deficits Status: Acute Assessment and Plan: She has no residual effects. She does take aspirin 81 mg daily. We will hold that until we discover the source of bleeding Plan Clear liquid diet today Colonoscopy tomorrow. I discussed the prep with her and her daughter. They understand that there are risks with endoscopy such as bleeding or perforation or possiblly even the need for surgery GI Consult Note Consult date/time: 08/14/23 13:56 Reason for consult: Hematochezia HPI: Dianne Perez is a 82 year old female who was admitted early this morning with rectal bleeding. The patient states that the bleeding began yesterday afternoon. She got up to go the bathroom and felt liquid come out and turned to see that it was blood. She also saw blood on toilet tissue when she wiped herself. She does not recall she passed any stool with that. She took a picture of the toilet bowl and looks like nothing but blood. She had another episode of bleeding today while in the waiting room. She denies having had constipation or straining. She denies rectal pain or abdominal pain. She has never had anything like this been passed. She was bit nausea this morning in the emergency room. That was at the time that they found that she was hypertensive, treated her aggressively her blood pressure bottomed out as her daughter mentioned The patient and her daughter think that she has an appointment to see me today in the office. According to the computer was for next month. She has a history of collagenous colitis, diagnosed on colonoscopy by Dr. Leblanc 8 years ago. That colonoscopy revealed internal hemorrhoids and diverticulosis. The biopsies did show advanced collagenous colitis. She has been taking budesonide, 9 mg per day ever since and also her daughter states that she takes sulfasalazine. The patient does not think she was taking them simultaneously, nor do I see sulfasalazine on her list of home meds. At any rate she has continued her medication and doing well without having severe diarrhea. Review of Systems Review of Systems: All systems reviewed & are unremarkable except as noted in HPI and below PMFSH Past Medical History Medical History Bullous pemphigoid Cerebral atherosclerosis CKD (chronic kidney disease) stage 3, GFR 30-59 ml/min Collagenous colitis Diabetes A1c 5.8 on 02-16-20 Gout History of stroke (~06/2022) Hypertension Lichen planopilaris Osteoarthritis Prediabetes Skin problem Stress reaction of pelvis Thyromegaly Urinary incontinence Vitamin D deficiency Surgical History Surgical History H/O basal cell carcinoma excision (~
[2023-08-14 17:46] LABS: Glucose Point of Care 99 mg/dl (65-105)
[2023-08-14] MEDS: polyethylene glycoL 3350 238 GM BOTTLE PO (18:17)
[2023-08-14] MEDS: BISACODYL 5 MG TABLET EC 10 MG PO (18:18)
[2023-08-14 19:29] LABS: Hematocrit 39.3 % (37.0-47.0); Hemoglobin 11.9 g/dL (12.0-15.0)
[2023-08-14 21:18] LABS: Glucose Point of Care 177 mg/dl (65-105)
[2023-08-14] MEDS: MIRTAZAPINE 15 MG TABLET PO (21:18)
[2023-08-15] VITALS (12 sets, daily range): BP systolic 150–204; BP diastolic 64–98; PULSE 61–93; RESP 17–22; TEMP 36.2–36.9; O2SAT 92–97
[2023-08-15 00:37] LABS: Hematocrit 39.3 % (37.0-47.0); Hemoglobin 12.3 g/dL (12.0-15.0)
[2023-08-15 06:12] LABS: Hematocrit 38.3 % (37.0-47.0); Mean Corpuscular HGB Conc 31.3 g/dl (32-36); Mean Corpuscular Hemoglobin 29.7 pg (26-34); Mean Corpuscular Volume 94.8 fl (80-100); Mean Platelet Volume 11.5 fl (7.4-10.4); Platelet Count Result 189 k/mm3 (150-375); Red Blood Count 4.04 M/mm3 (4.2-5.4); Red Cell Distribution Width 13.6 % (11.5-14.5); White Blood Count 10.1 K/mm3 (4.5-10.0)
[2023-08-15 06:30] LABS: Alanine Aminotransferase 18 U/L (6-35); Albumin Level 4.2 g/dL (3.5-5.1); Alkaline Phosphatase 70 U/L (38-126); Anion Gap 8 mmol/L (8-16); Aspartate Amino Transferase 23 U/L (14-36); Bilirubin,Total 0.7 mg/dL (0.2-1.3); Blood Urea Nitrogen 24 mg/dL (7-17); Calcium 8.8 mg/dL (8.4-10.2); Carbon Dioxide 30 mmol/L (22-30); Chloride 95 mmol/L (98-107); Estimated CRCL calculation 23 ml/min; Estimated Glomerular Filt Rate 27; Glucose 136 mg/dL (65-110); Potassium 3.5 mmol/L (3.4-5.0); Sodium 133 mmol/L (137-145)
[2023-08-15 07:52] LABS: Glucose Point of Care 103 mg/dl (65-105)
[2023-08-15] MEDS: SERTRALINE HCL 25 MG TABLET 75 MG PO (08:43)
[2023-08-15] MEDS: BUDESONIDE 3 MG CAP.SR.24H PO (08:44)
[2023-08-15] MEDS: FERROUS SULFATE 325 MG TABLET DR PO (08:44)
[2023-08-15] MEDS: PANTOPRAZOLE SODIUM IV 40 MG VIAL IV PUSH (08:44)
[2023-08-15] MEDS: LORATADINE 10 MG TABLET PO (08:44)
[2023-08-15] MEDS: SPIRONOLACTONE 25 MG TABLET PO (08:44)
[2023-08-15] MEDS: CHOLECALCIFEROL 1,000 UNITS TABLET 2000 UNITS PO (08:44)
--- NOTE | 2023-08-15 10:41 | PCPTNOTE ---
Attempted PT evaluation. Pt off the unit for a procedure. Will follow.
[2023-08-15 10:42] LABS: Glucose Point of Care 96 mg/dl (65-105)
[2023-08-15] MEDS: LACTATED RINGERS 1,000 ML 150 ML IV CONT (10:48)
--- NOTE | 2023-08-15 11:09 | WPDANESEPPF ---
Anes - Initial Pre Proc Eval Procedure: Operation Date: 08/15/23 14:45 Proposed Procedures p Colonoscopy - Singh Pagan MD Date/Time: 08/15/23 11:09 Surgeon: Michelle Wan DO Pre Op Diagnosis: GI bleed Patient Data Age: 82 Gender: F Height: 1.57 m Weight: 86 kg Last Vital Signs Temp 98.5 F 08/15/23 10:44 Pulse 68 08/15/23 10:44 Resp 20 08/15/23 10:44 BP 150/87 H 08/15/23 10:44 Pulse Ox 96 08/15/23 10:44 O2 Del Method Room Air 08/15/23 10:44 O2 Flow Rate 2 08/14/23 20:45 FiO2 28 08/14/23 16:55 Allergies Allergy/AdvReac Type Severity Reaction Status Date / Time No Known Allergies Allergy Verified 08/15/23 10:41 Home Medications Medication Instructions Recorded Confirmed Type cholecalciferol (vitamin D3) 50 2,000 unit PO DAILY 12/30/19 08/14/23 History mcg (2,000 unit) capsule glucosam 750 mg-chondroi 100 1 tablet PO DAILY 12/30/19 08/14/23 History mg-hyalur 1.65 mg-CF borate 108 mg tablet ([employer]) multivitamin with iron (Daily 1 tablet PO DAILY 12/30/19 08/14/23 History Vites/Iron tablet) exenatide microspheres 2 mg/0.85 2 mg subcut WEEKLY 02/07/22 08/14/23 History mL subcutaneous auto-injector ([employer]) aspirin 81 mg chewable tablet 81 mg PO DAILY@0800 #30 tabs 06/27/22 08/14/23 Rx ([facility]'s Aspirin) ferrous sulfate 325 mg (65 mg 325 mg PO DAILY #30 tabs 06/27/22 08/14/23 Rx iron) tablet,delayed release mirtazapine 15 mg tablet (Remeron) 15 mg PO HS #30 tabs 06/27/22 08/14/23 Rx albuterol sulfate 90 mcg/actuation 2 puff inhalation Q4H PRN 02/14/23 08/14/23 Rx aerosol inhaler shortness of breath or wheezing #8.5 grams losartan 100 mg tablet 100 mg PO HS 02/14/23 08/14/23 History atorvastatin 40 mg tablet 40 mg PO QHS 06/25/23 08/14/23 History spironolactone 25 mg tablet 25 mg PO DAILY #90 tabs 07/12/23 08/14/23 Rx budesonide 3 mg 3 mg PO DAILY #30 ea 08/06/23 08/14/23 Rx capsule,delayed,extended release cetirizine 10 mg tablet (Zyrtec) 10 mg PO DAILY 08/14/23 08/14/23 History sertraline 50 mg tablet 75 mg PO DAILY 08/14/23 08/14/23 History vitamin E 400 unit tablet 400 unit PO DAILY 08/14/23 08/14/23 History Laboratory Tests 08/14/23 08/14/23 08/14/23 12:14 17:19 18:32 WBC RBC Hgb 12.2 g/dL 11.9 L g/dL (12.0-15.0) (12.0-15.0) Hct 39.2 % 39.3 % (37.0-47.0) (37.0-47.0) MCV MCH MCHC RDW Plt Count MPV Sodium Potassium Chloride Carbon Dioxide Anion Gap BUN Creatinine Estim Creat Clear Calc Estimated GFR Glucose POC Capillary Glucose 99 mg/dl (65-105) Calcium Total Bilirubin AST ALT Alkaline Phosphatase Total Protein Albumin 08/14/23 08/15/23 08/15/23 21:15 00:28 05:43 WBC 10.1 H K/mm3 (4.5-10.0) RBC 4.04 L M/mm3 (4.2-5.4) Hgb 12.3 g/dL 12.0 g/dL (12.0-15.0) (12.0-15.0) Hct 39.3 % 38.3 % (37.0-47.0) (37.0-47.0) MCV 94.8 fl (80-100) MCH 29.7 pg (26-34) MCHC 31.3 L g/dl (32-36) RDW 13.6 % (11.5-14.5) Plt Count 189 k/mm3 (150-375) MPV 11.5 H fl (7.4-10.4) Sodium 133 L mmol/L (137-145) Potassium 3.5 mmol/L (3.4-5.0) Chloride 95 L mmol/L (98-107) Carbon Dioxide 30 mmol/L (22-30) Anion Gap 8 mmol/L (8-16) BUN 24 H mg/dL (7-17) Creatinine 1.80 H mg/dL (0.7-1.0) Estim Creat Clear Calc 23 ml/min Estimated GFR 27 L (59 - ) Glucose 136 H mg/dL (65-110) POC Capillary Glucose 177 H mg/dl (65-105) Calcium 8.8
--- NOTE | 2023-08-15 11:24 | PCOTNOTE ---
The patient treatment was not able to be completed on 08-15 @ 11:25 Patient was in a colonoscopy. Will plan to continue treatment per plan of care.
--- NOTE | 2023-08-15 11:40 | PM.IMPN ---
Subjective Date/time seen: 08/15/23 11:40 Objective Data Vital Signs Vital Signs: Vital Signs - 24 hr 08/14/23 12:00 08/14/23 12:00 08/14/23 16:55 Temperature 97.7 F Pulse Rate 90 85 95 Respiratory Rate 14 Blood Pressure 160/76 H Pulse Oximetry 96 96 Oxygen Delivery Nasal Cannula Oxygen Flow Rate 2 Fraction of Inspired Oxygen 28 08/14/23 16:00 08/14/23 16:00 08/14/23 20:00 Temperature 98.1 F 97.8 F Pulse Rate 80 80 75 Respiratory Rate 16 18 Blood Pressure 135/50 L 165/78 H Pulse Oximetry 98 95 Oxygen Delivery Oxygen Flow Rate Fraction of Inspired Oxygen 08/14/23 20:45 08/14/23 20:55 08/15/23 00:00 Temperature 97.2 F L Pulse Rate 85 Respiratory Rate 20 Blood Pressure 174/87 H Pulse Oximetry 96 95 94 Oxygen Delivery Nasal Cannula Room Air Oxygen Flow Rate 2 Fraction of Inspired Oxygen 08/14/23 20:00 08/15/23 00:00 08/15/23 04:00 Temperature 97.8 F Pulse Rate 76 79 70 Respiratory Rate 18 Blood Pressure 155/82 H Pulse Oximetry 94 Oxygen Delivery Oxygen Flow Rate Fraction of Inspired Oxygen 08/15/23 04:00 08/15/23 08:00 08/15/23 09:21 Temperature 97.7 F Pulse Rate 84 66 93 Respiratory Rate 22 H Blood Pressure 158/64 H Pulse Oximetry 97 93 Oxygen Delivery Room Air Oxygen Flow Rate Fraction of Inspired Oxygen 08/15/23 10:44 08/15/23 11:32 Temperature 98.5 F Pulse Rate 68 78 Respiratory Rate 20 20 Blood Pressure 150/87 H 172/84 H Pulse Oximetry 96 97 Oxygen Delivery Room Air Room Air Oxygen Flow Rate Fraction of Inspired Oxygen Intake/Output Intake/Output: Intake & Output 08/12/23 08/13/23 08/14/23 08/15/23 23:59 23:59 23:59 23:59 Intake Total 1022 200 Balance 1022 200 Meds/Results Medications: Active Medications Generic Name Dose Route Start Last Admin Trade Name Freq PRN Reason Stop Dose Admin Albuterol 2 puff 08/14/23 11:57 Albuterol Sulfate (*Sp) Aerosol 1 Puff INHALATION Q4H PRN shortness of breath or wheezing Budesonide 3 mg 08/15/23 09:00 08/15/23 08:44 Budesonide 3 Mg Cap.Sr.24h PO 3 mg DAILY ROBBY Administration Dextrose 12.5 gm 08/14/23 12:00 Dextrose 50% 25 Gm/50 Ml Syringe IV PUSH PRN PRN Hypoglycemia Protocol Ferrous Sulfate 325 mg 08/15/23 09:00 08/15/23 08:44 Ferrous Sulfate [address] PO 325 mg DAILY ROBBY Administration Glucagon 1 mg 08/14/23 12:00 Glucagon For Inj 1 Mg Vial IM PRN PRN Hypoglycemia Protocol Glucose 15 gm 08/14/23 12:00 Glucose Oral Gel 15 Gm Of Glucse In 37.5 Gm Tube PO PRN PRN Hypoglycemia Protocol Hydralazine HCl 10 mg 08/14/23 11:58 Hydralazine Hcl 20 Mg/Ml Vial IV PUSH Q8H PRN Blood Pressure - High Dextrose 1,000 mls @ 100 mls/hr 08/14/23 12:00 Dextrose 5% 1,000 Ml IVPB PRN PRN Hypoglycemia Protocol Ceftriaxone Sodium 1 gm in 50 mls @ 100 mls/hr 08/14/23 12:00 08/14/23 13:20 Rocephin 1 Gm/Ns 50 Ml IVPB Infused Q24H ROBBY Infusion Lactated Ringer's 1,000 mls @ 150 mls/hr 08/15/23 10:45 08/15/23 11:39 Lr - Lactated Ringers Iv IV CONT Infused .[id number] ROBBY Infusion Insulin Aspart 2 - 5 units 08/14/23 12:00 08/15/23 08:45 Insulin Aspart (*Bkc) 100 Units/Ml SUB-Q Not Given TIDWM ROBBY Protocol Insulin Aspart 1 - 2 units 08/14/23 21:00 08/14/23 21:00 Insulin Aspart (*Bkc) 100 Units/Ml SUB-Q Not Given HS ROBBY Protocol Loratadine 10 mg 08/15/23 09:00 08/15/23 08:44 Loratadine 10 Mg Tablet PO 10 mg QAM ROBBY Administration Losartan Potassium 100 mg 08/14/23 21:00 08/14/23 21:18 Losartan Potassium 100 Mg Tablet PO 100 mg HS ROBBY Administration Mirtazapine 15 mg 08/14/23 21:00 08/14/23 21:18 Mirtazapine 15 Mg Tablet PO 15 mg HS ROBBY Administration Ondansetron HCl 4 mg 08/14/23 07:17 08/14/23 23:45 Ondansetron Inj 4 Mg/2
--- NOTE | 2023-08-15 11:54 | SUR.PHASEII ---
MD Pham notified of pt VS. no new orders. pt appears in NAD, denies complaints. floor RN notified. family at bedside speaking with DR. Pagan.
[2023-08-15] MEDS: hydrALAZINE HCL 20 MG/ML VIAL 10 MG IV PUSH (12:32)
[2023-08-15 14:51] LABS: Anion Gap 10 mmol/L (8-16); Blood Urea Nitrogen 22 mg/dL (7-17); Calcium 9.1 mg/dL (8.4-10.2); Carbon Dioxide 28 mmol/L (22-30); Chloride 97 mmol/L (98-107); Estimated CRCL calculation 24 ml/min; Estimated Glomerular Filt Rate 29; Glucose 101 mg/dL (65-110); Potassium 3.4 mmol/L (3.4-5.0); Sodium 135 mmol/L (137-145)
--- NOTE | 2023-08-15 16:18 | PM.DS ---
DS: Admitting Diagnosis Discharge Date 08/15/2023 Admitting Diagnosis GI bleed DS: Discharge Diagnosis Discharge Diagnosis (1) Acute GI bleeding: Code(s): K92.2 - Gastrointestinal hemorrhage, unspecified Status: Acute (2) Hypertension: Qualifiers: Hypertension type: unspecified Qualified Code(s): I10 - Essential (primary) hypertension Code(s): I10 - Essential (primary) hypertension Status: Acute (3) CKD (chronic kidney disease) stage 3, GFR 30-59 ml/min: Qualifiers: Chronic kidney disease stage 3 subtype: stage 3a (GFR 45-59) Qualified Code(s): N18.31 - Chronic kidney disease, stage 3a Code(s): N18.30 - Chronic kidney disease, stage 3 unspecified Status: Chronic (4) Urinary tract infection: Code(s): N39.0 - Urinary tract infection, site not specified Status: Acute (5) Diabetes: Qualifiers: Diabetes mellitus type: type 2 Diabetes mellitus detention insulin use: without terminal make up operator use Diabetes mellitus complication status: without complication Qualified Code(s): E11.9 - Type 2 diabetes mellitus without complications Code(s): E11.9 - Type 2 diabetes mellitus without complications Status: Acute DS: Summary Hospital Course Reason for hospitalization: GI bleed Hospital Course: 82-year-old female presented on 08/14/2023 after noticing bright red blood filling the toilet. She stated at that time she has never had that occur before and denies history of hemorrhoids and diverticular disease. At time of admission she was unsure of the last colonoscopy recalls that it was at least 5 years ago. She also developed some nausea vomiting prior to presenting to the emergency room but reports that it was not bloody. She presented with a blood pressure of 225/95 and H and H was 12.7/ 41.4. She also had an elevated BUN and creatinine of 21/ 1.3 which was near her baseline. A urine was collected which shown 1+ leukocytes, 4+ bacteria, urine RBC > 100. Urine culture was obtained which revealed Gram-negative bacilli. Patient received 2g of Rocephin this admission and was prescribed Cefdinir for UTI upon discharge. She had a CT scan of her abdomen pelvis with contrast which revealed small focal area of hyperdensity in the gastric fundus region with a large hiatal hernia, 3.0x 3.9x 3.8 cm mass along the anterior margin of the right acetabulum/ destructive component with peripheral hyperdense material as above, and small gallstones versus gallbladder wall polyps. Patient also had a CT of the head without contrast which did not show any intracranial hemorrhage mass or acute infarct. GI was consulted due to bright red blood per rectum. Patient was taken to GI lab today and was found to have a 10 mm polyp in the proximal ascending colon which was excised and retrieved. A resolution clip was placed successfully to control the bleeding, multiple diverticula were present in the ascending colon and sigmoid colon, diverticula were not actively bleeding, and multiple large sized internal hemorrhoids were seen in the rectum but no active bleeding during the procedure. Further recommendation post colonoscopy if bleeding ensues would consider banding of internal hemorrhoids by surgery in the future. Patient was placed on high-fiber diet and was able to resume home medications. She is to follow up with her primary care physician in 1 week for high blood pressure and obtain another BMP at that time. Status at Discharge Cognitive/behavioral status at discharge: Awake, alert and oriented x4 Functional status at discharge: uses cane/walker Overall status at discharge: patient is progressing back to baseline Time Spent with Patient Time attestation: Total time spent providing and/or coordinating discharge services: Time spent: Greater than 30 minutes Exam Narrative: GENERAL: Comfortable, no acute distress HENMT: moist mucous membranes EYES: EOM intac
== END 2023-08-15 17:00 | disposition home or self-care (01) ==
LOC: ANHED 08-14 07:14 → ANHENDO 08-14 07:21 → ANH3MEDSUR 08-14 09:22
PROVIDERS: Internal Medicine Critical Care Medicine; Internal Medicine Gastroenterology; Nurse Practitioner; Admitting Provider Internal Medicine; Emergency Provider Emergency Medicine; PCP Family Medicine; Visit Provider Family Medicine
PROC: 0DJD8ZZ Inspection of Lower Intestinal Tract, Via Natural or Artificial Opening Endoscopic (ICD-10-PCS; CPT 45378; principal; 2023-08-15 14:45)
DX: D12.2 Benign neoplasm of ascending colon (principal); K57.30 Diverticulosis of large intestine without perforation or abscess without bleeding; K64.8 Other hemorrhoids; R55 Syncope and collapse; I13.10 Hypertensive heart and chronic kidney disease without heart failure, with stage 1 through stage 4 chronic kidney disease, or unspecified chronic kidney disease; E11.22 Type 2 diabetes mellitus with diabetic chronic kidney disease; N18.31 Chronic kidney disease, stage 3a; N39.0 Urinary tract infection, site not specified; B96.1 Klebsiella pneumoniae [K. pneumoniae] as the cause of diseases classified elsewhere; K52.831 Collagenous colitis; K44.9 Diaphragmatic hernia without obstruction or gangrene; R06.02 Shortness of breath; M19.90 Unspecified osteoarthritis, unspecified site; R32 Unspecified urinary incontinence; R94.31 Abnormal electrocardiogram [ECG] [EKG]; L12.0 Bullous pemphigoid; L66.1 Lichen planopilaris; E66.9 Obesity, unspecified; Z68.34 Body mass index [BMI] 34.0-34.9, adult; M24.851 Other specific joint derangements of right hip, not elsewhere classified; E55.9 Vitamin D deficiency, unspecified; Z86.73 Personal history of transient ischemic attack (TIA), and cerebral infarction without residual deficits; Z79.85 Long-term (current) use of injectable non-insulin antidiabetic drugs; Z79.51 Long term (current) use of inhaled steroids; Z79.82 Long term (current) use of aspirin; Z79.899 Other long term (current) drug therapy; Z82.49 Family history of ischemic heart disease and other diseases of the circulatory system; Z83.3 Family history of diabetes mellitus; Z83.79 Family history of other diseases of the digestive system
CPT/HCPCS: 45382; 45385; 36415; 70450; 74177; 80048; 80053; 81001; 82948; 85014; 85018; 85025; 85027; 85610; 85730; 86850; 86900; 86901; 87077; 87086; 87186; 88305; 93005; 96361; 96365; 96375; 96376; 97161; 97165; 97535; 99285; A9270; C9113; G0378; J0360; J0696; J2405; J2704; J7040; J7120; Q9967

== ENCOUNTER 2023-08-20 15:57 | Outpatient (CLI) | payer MEDICARE, SELFPAY ==
[2023-08-20 19:49] LABS: Anion Gap 9 mmol/L (8-16); Blood Urea Nitrogen 25 mg/dL (7-17); Calcium 9.6 mg/dL (8.4-10.2); Carbon Dioxide 31 mmol/L (22-30); Chloride 104 mmol/L (98-107); Estimated Glomerular Filt Rate 33; Glucose 102 mg/dL (65-110); Potassium 3.7 mmol/L (3.4-5.0); Sodium 144 mmol/L (137-145)
== END 2023-08-20 15:58 | disposition home or self-care (01) ==
PROVIDERS: PCP Family Medicine; Visit Provider Nurse Practitioner
DX: N18.30 Chronic kidney disease, stage 3 unspecified (principal)
CPT/HCPCS: 36415; 80048

== ENCOUNTER 2023-08-27 10:09 | Outpatient (NON) | payer MEDICARE, SELFPAY | END 2023-08-27 10:10 | disposition home or self-care (01) | PROVIDERS: PCP Family Medicine; Visit Provider Family Medicine | DX: N39.0 Urinary tract infection, site not specified (principal) | CPT/HCPCS: 87086; 87088 ==

== ENCOUNTER 2023-09-04 16:27 | Outpatient (CLI) | payer MEDICARE, SELFPAY ==
[2023-09-04 17:12] LABS: Basophils Percent Auto 0.3 % (0.2-1.2); Eosinophils Absolute Auto 0.2 K/mm3 (0-0.3); Eosinophils Percent Auto 1.1 % (0-4.4); Hematocrit 36.7 % (37.0-47.0); Hemoglobin 11.3 g/dL (12.0-15.0); Immature Granulocyte Percent A 1.3 % (0-0.5); Lymphocytes Absolute Auto 1.16 K/mm3 (0.9-3.2); Lymphocytes Percent Auto 7.6 % (18.3-44.2); Mean Corpuscular HGB Conc 30.8 g/dl (32-36); Mean Corpuscular Hemoglobin 28.5 pg (26-34); Mean Corpuscular Volume 92.4 fl (80-100); Mean Platelet Volume 11.6 fl (7.4-10.4); Monocytes Absolute Auto 1.1 K/mm3 (0.1-0.6); Monocytes Percent Auto 7.1 % (2.6-8.5); Neutrophils Absolute Auto 12.6 K/mm3 (1.3-6.7); Neutrophils Percent Auto 82.6 % (45.5-73.1); Platelet Count Result 213 k/mm3 (150-375); Red Blood Count 3.97 M/mm3 (4.2-5.4); Red Cell Distribution Width 13.2 % (11.5-14.5); White Blood Count 15.3 K/mm3 (4.5-10.0)
[2023-09-04 17:21] LABS: Alanine Aminotransferase 15 U/L (6-35); Albumin Level 3.9 g/dL (3.5-5.1); Alkaline Phosphatase 72 U/L (38-126); Anion Gap 8 mmol/L (8-16); Aspartate Amino Transferase 18 U/L (14-36); Bilirubin,Total 0.4 mg/dL (0.2-1.3); Blood Urea Nitrogen 31 mg/dL (7-17); Carbon Dioxide 25 mmol/L (22-30); Chloride 100 mmol/L (98-107); Estimated Glomerular Filt Rate 36; Glucose 122 mg/dL (65-110); Potassium 3.7 mmol/L (3.4-5.0); Sodium 133 mmol/L (137-145)
[2023-09-04 19:08] LABS: Hemoglobin A1C 5.9 % (<5.7)
== END 2023-09-04 16:28 | disposition home or self-care (01) ==
PROVIDERS: PCP Family Medicine; Visit Provider Family Medicine
DX: D64.9 Anemia, unspecified (principal); E11.9 Type 2 diabetes mellitus without complications; I10 Essential (primary) hypertension; N39.0 Urinary tract infection, site not specified
CPT/HCPCS: 36415; 80053; 83036; 85025

== ENCOUNTER 2023-09-07 10:37 | Outpatient (NON) | payer MEDICARE, SELFPAY ==
[2023-09-07 11:28] LABS: Appearance Urine Cloudy (Clear); Bacteria Urine None Seen /hpf; Bilirubin Urine Negative (Negative); Blood Urine Negative (Negative); Color Urine Yellow (Yellow); Glucose Urine UA Negative (Negative); Ketones Urine Negative (Negative); Leukocyte Esterase Ur 1+ LEU/UL (Negative); Need Manual Microscopic Reviewed; Nitrate Urine Negative (Negative); Non Pathogenic Casts 0-2; Protein Urine Trace mg/dL (Negative); RBC Urine 0-2 /hpf (0-2); Specific Grav Ur 1.011 (1.001-1.035); Squamous Epithelial Cell Urine Occasional /hpf (Few); Urobilinogen Urine 0.2 mg/dL (<2.0)
[2023-09-07 11:30] LABS: Add Urine Microscopic? YES
== END 2023-09-07 10:38 | disposition home or self-care (01) ==
PROVIDERS: PCP Family Medicine; Visit Provider Family Medicine
DX: N39.0 Urinary tract infection, site not specified (principal)
CPT/HCPCS: 81001; 87086